=== PATIENT | female | born 1960 | race Hispanic/Latino ===

== ENCOUNTER 2019-05-16 18:19 | Emergency (ER) | payer OTHER ==
[2019-05-16 18:27] VITALS: BP 158/72
--- NOTE | 2019-05-16 18:28 | Event Note ---
ED Screening Note Date of service: 05/16/19 Time: 18:25 ED Screening Note: This is a 59 y.o. F. that presents to the ER with n/v and migraines since landing. PMH of migraines Patient states usually receive Botox injections for pain. This initial assessment/diagnostic orders/clinical plan/treatment(s) is/are subject to change based on patients health status, clinical progression and re- assessment by fellow clinical providers in the ED. Further treatment and workup at subsequent clinical providers discretion. Patient/guardian urged not to elope from the ED as their condition may be serious if not clinically assessed and managed. Initial orders include: Received silvana at [facility]
[2019-05-16] MEDS ORDERED: fentaNYL 100 MCG/2 ML INJ IM ONE (18:41)
[2019-05-16] MEDS ORDERED: METOCLOPRAMIDE 10 MG/2 ML INJ IM ONE (18:41)
--- NOTE | 2019-05-16 18:45 | Emergency Department Report ---
HPI - General Chief Complaint: Dizziness Time Seen by Provider: 05/16/19 18:25 - HPI HPI: Room 35 The patient is a 59-year-old female presenting with a chief complaint of headache nausea vomiting. The patient states last night and rolled told room she slipped and fell floor falling backwards striking her head. Patient denies loss of consciousness. Patient denies headache at the time and states when she awakened this morning had a headache. Patient was to frequent nausea and vomiting. Patient denies chest pain, shortness of breath or pleurisy. Patient is or pain score" 12/10." Location: [See above] Duration: [See above] Quality: [See above] Severity: [See above] Timing: [See above] Context: [See above] Modifying factors: [See above] Associated signs and symptoms: [see above] ED Past Medical Hx - Past Medical History Previous Medical History?: No - Surgical History Hx Breast Surgery: Yes (breast augmentation) Additional Surgical History: Spinal surgery - Family History Family history: no significant - Social History Smoking Status: Never Smoker Substance Use Type: None (denies illicit drug use), Alcohol (occasional) - Medications Home Medications: Home Medications Medication Instructions Recorded Confirmed Last Taken Type HYDROcodone/APAP 5-325 [Kyburz 1 each PO Q6HR PRN #14 tablet 05/16/19 Unknown Rx 5/325] Metoclopramide [Reglan] 10 mg PO QID PRN #20 tablet 05/16/19 Unknown Rx ED Review of Systems ROS: Stated complaint: WEAK/VOMIT/MIGRANE Other details as noted in HPI Constitutional: no symptoms reported Eyes: denies: eye pain ENT: denies: throat pain Respiratory: no symptoms reported Cardiovascular: denies: chest pain Endocrine: no symptoms reported Gastrointestinal: nausea, vomiting Musculoskeletal: arthralgia Neurological: headache Physical Exam - Physical Exam Vital Signs: Vital Signs 05/16/19 18:25 Temperature 98.1 F Pulse Rate 101 H Respiratory 22 Rate Blood Pressure 158/72 O2 Sat by Pulse 99 Oximetry Physical Exam: GENERAL: The patient is well-developed well-nourished female lying on stretcher appearing to be in mild discomfort. [] HEENT: Normocephalic. Atraumatic. Extraocular motions are intact. Patient has moist mucous membranes. NECK: Supple. Mild mid to lower cervical spine tenderness to palpation. No axial step CHEST/LUNGS: Clear to auscultation. There is no respiratory distress noted. HEART/CARDIOVASCULAR: Regular. There is no tachycardia. There is no gallop rub or murmur. ABDOMEN: Abdomen is soft, nontender. Patient has normal bowel sounds. There is no abdominal distention. SKIN: There is no rash. There is no edema. There is no diaphoresis. NEURO: The patient is awake, alert, and oriented. The patient is cooperative. The patient has no focal neurologic deficits. The patient has normal speech. Cranial nerves II through XII grossly intact, no drift MUSCULOSKELETAL: TThere is no evidence of acute injury. ED Course Vital Signs 05/16/19 18:25 Temperature 98.1 F Pulse Rate 101 H Respiratory 22 Rate Blood Pressure 158/72 O2 Sat by Pulse 99 Oximetry - Reevaluation(s) Reevaluation #1: 05/16/19 20:19 Patient states she feels improved. Gives her headache is score of 5/10 now (im proved from "05/30") ED Medical Decision Making - Lab Data Result diagrams: 05/16/19 18:59 05/16/19 18:59 Laboratory Tests 05/16/19 05/16/19 05/16/19 18:59 18:59 18:59 WBC 6.4 RBC 4.19 Hgb 12.5 Hct 37.4 MCV 89 MCH 30 MCHC 34 RDW 13.1 L Plt Count 214 Lymph % (Auto) 8.9 L [place] % (Auto) 3.0 Eos % (Auto) 0.0 Baso % (Auto) 0.3 Lymph # 0.6 L [place] # 0.2 Eos # 0.0 Baso # 0.0 Seg Neutrophils % 87.8 H Seg Neutrophils # 5.6 PT 12.8 INR 0.97 Sodium 143 Potassium 3.9 Chloride 103.0 Carbon Dioxide 23 Anion Gap 21 BUN 18 H Creatinine 0.6 L Estimated GFR > 60 BUN/Creatinine Ratio 30 Glucose 119 H Calcium 9.6 Total Bilirubin 0.40 AST 26 ALT 22 Alkaline Phosphatase 69 Total Creatine Kinase 196 H CK-MB (CK-2) 3.3 CK-MB (CK-2) Rel Index 1.6 Troponin T < 0.010 Total Protein 7.6 Albumin 4.5 Albumin/Globulin Ratio 1.5 Lipase 11 L - Radiology Data Radiology results: report reviewed (CT head, CT cervical spine), image reviewed (CT head, CT cervical spine) [address] [address] Cat Scan Report Signed Patient: DELORES BELLA MR#: [id number] : 1960 Acct:[id number] Age/Sex: 59 / F ADM Date: 05/16/19 Loc: ED Attending Dr: Ordering Physician: ORLANDO SANTIAGO MD Date of Service: 05/16/19 Procedure(s): CT head/brain wo con Accession Number(s): [id number] cc: ORLANDO SANTIAGO MD CT BRAIN: 05/16/2019 INDICATION / CLINICAL INFORMATION: headache nausea vomiting, fall last night. COMPARISON: None available. FINDINGS: BRAIN/INTRACRANIAL STRUCTURES: Unenhanced CT images of the brain demonstrate no evidence of acute intracranial abnormality. Ventricles and sulci are normal in size and shape. There is no evidence of hemorrhage or mass. There are no abnormal extra-axial fluid collections. EXTRACRANIAL STRUCTURES: Unremarkable. IMPRESSION: Negative unenhanced CT of the brain. All CT scans at this location are performed using dose reduction to ALARA by means of automated exposure control. Signer Name: Ernie Renteria MD Signed: 05/16/2019 7:47 PM Workstation Name: [id number] Transcribed By: AO Dictated By: Ernie Renteria MD Electronically Authenticated By: Ernie Renteria MD Signed Date/Time: 05/16/191946 DD/ 41 TD/TT: [address] [address] Cat Scan Report Signed Patient: DELORES BELLA MR#: [id number] : 1960 Acct:[id number] Age/Sex: 59 / F ADM Date: 05/16/19 Loc: ED Attending Dr: Ordering Physician: ORLANDO SANTIAGO MD Date of Service: 05/16/19 Procedure(s): CT cervical spine wo con Accession Number(s): [id number] cc: ORLANDO SANTIAGO MD CT CERVICAL SPINE: 05/16/2019 INDICATION / CLINICAL INFORMATION: pain after fall. COMPARISON: None available. FINDINGS: CT images of the cervical spine were obtained. Images are evaluated in the axial, coronal, and sagittal planes. There is no evidence of acute abnormality. The patient has had prior anterior spinal fusion at the C5-6 level. The disc space is solidly fused, with a normal postoperative appearance. Vertebral body alignment is unremarkable. 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 CRANIOCERVICAL JUNCTION: Unremarkable. PARASPINAL STRUCTURES: Unremarkable Incidental note is made of some right apical pleural scarring, only partially visualized on this cervical spine protocol. IMPRESSION: No acute abnormality. Postoperative change. All CT scans at this location are performed using dose reduction to ALARA by means of automated exposure control. Signer Name: Ernie Renteria MD Signed: 05/16/2019 7:51 PM Workstation Name: [id number] Transcribed By: MARCOS Dictated By: Ernie Renteria MD Electronically Authenticated By: Ernie Renteria MD Signed Date/Time: 05/16/191950 DD/ 46 TD/TT: - Differential Diagnosis closed head injury, postconcussive syndrome, ICH, Critical care attestation.: If time is entered above; I have spent that time in minutes in the direct care of this critically ill patient, excluding procedure time. ED Disposition Clinical Impression: Postconcussive syndrome Disposition: - TO HOME OR SELFCARE Is pt being admited?: No Does the pt Need Aspirin: No Condition: Stable Instructions: Post Concussion Syndrome (ED) Additional Instructions: Return to the emergency department should you develop worsening symptoms, inability to tolerate food or liquids, high fever or any other concerns Prescriptions: HYDROcodone/APAP 5-325 [Kyburz 5/325] 1 each PO Q6HR PRN #14 tablet PRN Reason: Pain Metoclopramide [Reglan] 10 mg PO QID PRN #20 tablet PRN Reason: Nausea Referrals: PRIMARY CARE, [Referring] - 3-5 Days Time of Disposition: 20:20
[2019-05-16 19:35] LABS: Creatine Kinase MB 3.3 ng/mL (0.0-4.0)
[2019-05-16 19:37] LABS: Alanine Aminotransferase 22 units/L (7-56); Albumin 4.5 g/dL (3.9-5); BUN/Creatinine Ratio 30; Blood Urea Nitrogen 18 mg/dL (7-17); Calcium 9.6 mg/dL (8.4-10.2); Hemolysis Index 7
[2019-05-16 19:40] LABS: Basophils % (Auto) 0.3 % (0.0-1.8); Hematocrit 37.4 % (30.3-42.9); Hemoglobin 12.5 gm/dl (10.1-14.3); Lymphocytes # (Auto) 0.6 K/mm3 (1.2-5.4); Lymphocytes % (Auto) 8.9 % (13.4-35.0); Mean Corpuscular HGB Conc 34 % (30-34); Mean Corpuscular Volume 89 fl (79-97); Monocytes # (Auto) 0.2 K/mm3 (0.0-0.8); Platelet Count 214 K/mm3 (140-440); Red Blood Count 4.19 M/mm3 (3.65-5.03); Red Cell Distribution Width 13.1 % (13.2-15.2)
[2019-05-16 19:49] LABS: INR 0.97 (0.87-1.13)
--- NOTE | 2019-05-16 19:51 | Cat Scan Report ---
CT BRAIN: 05/16/2019 INDICATION / CLINICAL INFORMATION: headache nausea vomiting, fall last night. COMPARISON: None available. FINDINGS: BRAIN/INTRACRANIAL STRUCTURES: Unenhanced CT images of the brain demonstrate no evidence of acute int racranial abnormality. Ventricles and sulci are normal in size and shape. There is no evidence of hemorrhage or mass. There are no abnormal extra-axial fluid collections. EXTRACRANIAL STRUCTURES: Unremarkable. IMPRESSION: Negative unenhanced CT of the brain. All CT scans at this location are performed using dose reduction to ALARA by means of automated expos ure control. Signer Name: Ernie Renteria MD Signed: 05/16/2019 7:47 PM Workstation Name: [id number]
--- NOTE | 2019-05-16 19:56 | Cat Scan Report ---
CT CERVICAL SPINE: 05/16/2019 INDICATION / CLINICAL INFORMATION: pain after fall. COMPARISON: None available. FINDINGS: CT images of the cervical spine were obtained. Images are evaluated in the axial, coronal, and sagit dann planes. There is no evidence of acute abnormality. The patient has had prior anterior spinal fusion at the C5-6 level. The disc space is solidly fused, with a normal postoperative appearance. Vertebral body alignment is unremarkable. 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 CRANIOCERVICAL JUNCTION: Unremarkable. PARASPINAL STRUCTURES: Unremarkable Incidental note is made of some right apical pleural scarring, only partially visualized on this cerv ical spine protocol. IMPRESSION: No acute abnormality. Postoperative change. All CT scans at this location are performed using dose reduction to ALARA by means of automated expos ure control. Signer Name: Ernie Renteria MD Signed: 05/16/2019 7:51 PM Workstation Name: [id number]
== END 2019-05-16 20:33 | disposition home or self-care (01) ==
LOC: ED 18:19
DX: F07.81 Postconcussional syndrome (principal); R11.2 Nausea with vomiting, unspecified; Z79.899 Other long term (current) drug therapy; Z98.890 Other specified postprocedural states; Z88.2 Allergy status to sulfonamides
CPT/HCPCS: 36415; 70450; 72125; 80053; 82550; 82553; 83690; 84484; 85025; 85610; 96372; 99284; J2765; J3010